=== PATIENT | male | born 1945 | race Hispanic/Latino ===

== ENCOUNTER 2019-05-27 11:35 | Inpatient (IN) | payer MEDICARE, OTHER ==
--- NOTE | 2019-05-27 12:03 | Emergency Department Report ---
<KESHIA SRINIVASAN - Last Filed: 05/27/19 14:41> ED Fall HPI - General Stated Complaint: FALL/NAUSEA/VOMITING/WEAKNESS Time Seen by Provider: 05/27/19 11:58 - History of Present Illness Initial Comments: Patient is 73 years old male with history of diabetes and hypertension. Patient presented to the ER for evaluation after a fall that happened 3 days ago. Patient stated that he lost his balance and fell on his right side complaining of lower back pain right ankle and foot pain. Patient denied any loss of consciousness. Patient denied any head injury, neck injury, chest pain or abdominal pain. MD Complaint: fall -: days(s) (3) Fall From: standing Fall Witnessed: yes, by family Place Fall Occurred: home Loss of Consciousness: none Prolonged Down Time?: no Symptoms Prior to Fall: none Location: back Location - Extremities: Right: Ankle, Foot Severity: moderate Severity scale (0 -10): 4 Quality: sharp Context: tripped/slipped Associated Symptoms: denies - Related Data Previous Rx's Medication Instructions Recorded Last Taken Type Meclizine [Antivert] 25 mg PO TID PRN #20 tablet 10/17/15 Unknown Rx HYDROcodone/APAP 5-325 [[place] 1 each PO Q6HR PRN #14 tablet 05/27/19 Unknown Rx 5/325] Ondansetron [Zofran Odt] 4 mg PO Q8HR PRN #14 tab.rapdis 05/27/19 Unknown Rx levoFLOXacin [Levaquin TAB] 500 mg PO QDAY #7 tablet 05/27/19 Unknown Rx Allergies Allergy/AdvReac Type Severity Reaction Status Date / Time No Known Allergies Allergy Verified 10/17/15 02:55 ED Review of Systems Comment: All other systems reviewed and negative Constitutional: denies: chills, fever Respiratory: denies: cough, shortness of breath, SOB with exertion Cardiovascular: denies: chest pain Gastrointestinal: denies: abdominal pain, nausea, vomiting Musculoskeletal: back pain, myalgia Neurological: denies: headache, weakness, numbness, paresthesias, confusion, abnormal gait ED Past Medical Hx - Past Medical History Hx Diabetes: Yes - Social History Smoking Status: Never Smoker Substance Use Type: None - Medications Home Medications: Home Medications Medication Instructions Recorded Confirmed Last Taken Type Meclizine [Antivert] 25 mg PO TID PRN #20 tablet 10/17/15 Unknown Rx HYDROcodone/APAP 5-325 [[place] 1 each PO Q6HR PRN #14 tablet 05/27/19 Unknown Rx 5/325] Ondansetron [Zofran Odt] 4 mg PO Q8HR PRN #14 tab.rapdis 05/27/19 Unknown Rx levoFLOXacin [Levaquin TAB] 500 mg PO QDAY #7 tablet 05/27/19 Unknown Rx ED Physical Exam - General General appearance: alert, in no apparent distress - Head Head exam: Present: atraumatic, normocephalic, normal inspection - Eye Eye exam: Present: normal appearance - ENT ENT exam: Present: normal exam, normal orophraynx, mucous membranes moist - Neck Neck exam: Present: normal inspection, full ROM. Absent: tenderness, meningismus, lymphadenopathy, thyromegaly - Respiratory Respiratory exam: Present: normal lung sounds bilaterally - Cardiovascular Cardiovascular Exam: Present: regular rate, normal rhythm, normal heart sounds - GI/Abdominal GI/Abdominal exam: Present: soft, normal bowel sounds. Absent: distended, tenderness, guarding, rebound, rigid, organomegaly, mass, bruit, pulsatile mass, hernia - Extremities Exam Extremities exam: Present: normal inspection, full ROM, normal capillary refill. Absent: pedal edema, calf tenderness - Back Exam Back exam: Present: normal inspection, full ROM. Absent: CVA tenderness (R), CVA tenderness (L) - Neurological Exam Neurological exam: Present: alert, oriented X3, CN II-XII intact, normal gait, reflexes normal. Absent: motor sensory deficit - Psychiatric Psychiatric exam: Present: normal mood - Skin Skin exam: Present: warm, intact, normal color - Orthopedic Splinting/Casting Injury #1 Side: right Lower Extremity Injury Location: ankle Lower Extremity Immobilizer: posterior splint ED Medical Decision Making - Radiology Data Radiology results: report reviewed - Medical Decision Making Patient is 73 years old male with history of diabetes and hypertension. Patient presented to the ER for evaluation after a fall that happened 3 days ago. Patient stated that he lost his balance and fell on his right side complaining o f lower back pain right ankle and foot pain. Patient denied any loss of consciousness. Patient denied any head injury, neck injury, chest pain or abdominal pain. X-ray showed a right lower fibula fracture. X-ray of the lumbar spine is negative for acute finding. Posterior leg splint applied with no complication. Patient given [place] for pain and advised to follow-up with Dr. Benedict in the nex t 2 to 3 days and to return to the ER if he develop any new symptoms. ED Disposition Clinical Impression: Closed right ankle fracture, STEMI (ST elevation myocardial infarction) Disposition: OP ADMIT IP TO THIS HOSP Is pt being admited?: No Condition: Stable Instructions: Ankle Fracture (ED) Prescriptions: levoFLOXacin [Levaquin TAB] 500 mg PO QDAY #7 tablet HYDROcodone/APAP 5-325 [[place] 5/325] 1 each PO Q6HR PRN #14 tablet PRN Reason: Pain Ondansetron [Zofran Odt] 4 mg PO Q8HR PRN #14 tab.rapdis PRN Reason: Nausea And Vomiting Referrals: PRIMARY CARE, [Primary Care Provider] - 3-5 Days ELAN BENEDICT MD [Staff Physician] - 3-5 Days <DUNG VALDIVIA - Last Filed: 05/27/19 18:32> ED Review of Systems ROS: Stated complaint: FALL/NAUSEA/VOMITING/WEAKNESS Other details as noted in HPI ED Course Vital Signs 05/27/19 05/27/19 05/27/19 11:54 12:01 12:02 Temperature 98.2 F Pulse Rate 92 H Respiratory 12 Rate Blood Pressure 127/58 Blood Pressure 127/58 [Left] O2 Sat by Pulse 97 98 96 Oximetry 05/27/19 05/27/19 05/27/19 12:57 13:01 13:15 Temperature Pulse Rate 86 90 90 Respiratory 22 15 Rate Blood Pressure 127/58 146/84 146/84 Blood Pressure [Left] O2 Sat by Pulse 99 98 Oximetry 05/27/19 05/27/19 05/27/19 13:31 13:45 14:00 Temperature Pulse Rate 84 84 85 Respiratory 17 26 H 20 Rate Blood Pressure 146/84 127/58 165/75 Blood Pressure [Left] O2 Sat by Pulse 98 96 97 Oximetry 05/27/19 05/27/19 05/27/19 14:15 14:31 14:45 Temperature Pulse Rate 86 89 89 Respiratory 20 17 14 Rate Blood Pressure 165/75 165/75 165/75 Blood Pressure [Left] O2 Sat by Pulse 97 98 99 Oximetry 05/27/19 05/27/19 05/27/19 15:00 15:15 15:26 Temperature Pulse Rate 89 92 H Respiratory 21 27 H 16 Rate Blood Pressure 180/107 180/107 Blood Pressure [Left] O2 Sat by Pulse 99 98 Oximetry 05/27/19 05/27/19 05/27/19 15:31 15:45 15:56 Temperature Pulse Rate 88 91 H Respiratory 18 18 14 Rate Blood Pressure 180/107 180/107 Blood Pressure [Left] O2 Sat by Pulse 95 94 Oximetry 05/27/19 05/27/19 05/27/19 16:01 16:15 16:31 Temperature Pulse Rate 90 90 91 H Respiratory 17 20 18 Rate Blood Pressure 180/107 180/107 180/107 Blood Pressure [Left] O2 Sat by Pulse 99 95 95 Oximetry 05/27/19 16:45 Temperature Pulse Rate 87 Respiratory 13 Rate Blood Pressure 180/107 Blood Pressure [Left] O2 Sat by Pulse 97 Oximetry - Reevaluation(s) Reevaluation #1: 05/27/19 18:31 Patient signed out to me pending results CT scan abdomen pelvis, apparently while in the emergency room, patient complained of weakness and nausea. I ordered an EKG, and it was handed to me at 6:15 PM. It is suggestive of inferior wall STEMI. I went back to personally evaluate the patient emergently. The patient complained of weakness and nausea since Friday; today is . To me, the patient makes no complaint of chest pain or shortness of breath. The EKG is transmitted to our biochemical engineer, , who agrees that the EKG meet STEMI criteria. We agreed to administer aspirin and heparin. Code STEMI was called overhead. I have also reached out to our radiology group, and have requested emergency interpretation of CT scan abdomen pelvis. ED Medical Decision Making - Lab Data Result diagrams: 05/27/19 15:55 05/27/19 15:55 Critical Care Time: Yes Critical care time in (mins) excluding proc time.: 60 Critical care attestation.: If time is entered above; I have spent that time in minutes in the direct care of this critically ill patient, excluding procedure time. ED Disposition Is pt being admited?: Yes Does the pt Need Aspirin: Yes
--- NOTE | 2019-05-27 14:21 | XRay Report ---
Injury, pain. INDICATION: Right foot injury. COMPARISON: None. FINDINGS: Frontal, lateral, and oblique views of the foot labeled right were obtained. There are mini tip displaced fractures of the distal right fibula as well as the distal most aspect of the medial malleolus. IMPRESSION: Minimally displaced fractures of the distal right fibula and distal most aspect of the right medial m alleolus. Signer Name: Barrett Grey MD Signed: 05/27/2019 2:17 PM Workstation Name: [id number]
--- NOTE | 2019-05-27 14:24 | XRay Report ---
Lumbar spine. INDICATION: BACK INJURY. COMPARISON: None. FINDINGS: Frontal and lateral radiographs of lumbar spine were obtained with coned down lateral view of the lumbosacral region. There are 5 nonrib-bearing lumbar vertebral bodies. No evidence of acute v ertebral body fracture. No vertebral body subluxation. There is extensive moderate to severe degenera tive change throughout the lumbar spine which is worse within the upper spine, particularly at L1/L2, and in the lower spine, particularly at L4/L5. IMPRESSION: Lumbar spine without evidence of acute osseous injury. Signer Name: Barrett Grey MD Signed: 05/27/2019 2:19 PM Workstation Name: [id number]
--- NOTE | 2019-05-27 14:26 | XRay Report ---
XR ankle 3+V RT INDICATION / CLINICAL INFORMATION: Right ankle injury. COMPARISON: None available. FINDINGS: BONES/JOINT(S): There is a nondisplaced oblique fracture of the lateral malleolus and a small nondisp laced fracture of the medial aspect of the medial malleolus. Ankle mortise alignment appears maintain ed. SOFT TISSUES: No significant abnormality. ADDITIONAL FINDINGS: None. Signer Name: Jeb Stearns MD Signed: 05/27/2019 2:21 PM Workstation Name: [id number]
[2019-05-27] MEDS ORDERED: ONDANSETRON 4 MG/2 ML INJ IM ONE (14:46)
[2019-05-27] MEDS ORDERED: MORPHINE 4 MG/1 ML INJ IM ONE (14:46)
[2019-05-27 15:24] LABS: Bacteria,Urine 4+ /HPF (Negative); Bilirubin,Urine NEG (Negative); Blood,Urine LG (Negative); Color,Urine Yellow (Yellow); Hyaline Casts,Urine 3 /LPF; Mucus,Urine 2+ /HPF; Sperm,Urine FEW /HPF (NP)
[2019-05-27 16:18] LABS: Basophils % (Auto) 0.2 % (0.0-1.8); Hemoglobin 14.7 gm/dl (11.8-15.2); Lymphocytes % (Auto) 5.6 % (13.4-35.0); Mean Corpuscular HGB Conc 33 % (32-34); Mean Corpuscular Volume 95 fl (84-94); Monocytes # (Auto) 1.2 K/mm3 (0.0-0.8); Monocytes % (Auto) 6.8 % (0.0-7.3); Platelet Count 153 K/mm3 (140-440); Red Blood Count 4.62 M/mm3 (3.65-5.03)
[2019-05-27 16:26] LABS: Albumin 3.4 g/dL (3.9-5); Calcium 9.2 mg/dL (8.4-10.2)
[2019-05-27] MEDS ORDERED: cefTRIAXone/NS 1 GM/50 ML 1 GM/50 ML BAG IV ONE (16:55)
[2019-05-27] MEDS ORDERED: SODIUM CHLORIDE 0.9% 1000 ML 1,000 ML IV ONE (16:55)
[2019-05-27] MEDS ORDERED: ALBUTEROL 2.5 MG/3 ML NEBU IH PRN (18:06)
[2019-05-27] MEDS ORDERED: ONDANSETRON 4 MG/2 ML INJ IV PRN (18:06)
[2019-05-27] MEDS ORDERED: ACETAMINOPHEN 325 MG TAB PO PRN (18:06)
--- NOTE | 2019-05-27 18:06 | History and Physical Report ---
History of Present Illness Chief complaint: My foot has been hurting since I fell down History of present illness: 73 YO Male with DM, Vertigo presents to ED for evaluation. Patient states that he experienced dizziness followed by a fall that occurred 3 days ago. Patient reports falling and landing on his right side and right leg. Patient reports that immediately after the fall he felt pain in his right ankle and foot. Patient states that pain has persisted since his fall and presents to ED for evaluation. Patient states that pain is 4/10, localized to the right foot, worsened with weightbearing, relieved with rest. EMS notified and upon arrival the patient was found to be in distress and subsequently transported to [facility] for further evaluation and care. Patient seen and evaluated in the emergency depar tment. Lab and imaging studies reviewed. Patient found to have right fibular fracture on x-ray of the right lower extremity. Orthopedic surgery consulted and recommend outpatient follow-up. Patient underwent routine EKG which showed evidence of ST elevation [place]. A code STEMI was called. Cardiology team consulted in the emergency department and patient to be taken urgently to the cardiac Garage Supervisor for intervention. Patient also found to have urinary tract infection, accelerated hypertension, as well as systemic inflammatory response syndrome suspected secondary to urinary tract infection. Patient admitted to IM. Patient denies fever, chills, chest pain, palpitations, shortness of dulce ath, hemoptysis, unilateral leg swelling, individual/family history of DVT/PE/bleeding/blood clotting disorders, unintentional weight loss, night sweats, or known ill contacts. Advanced care planning conducted in ED. No prior admission for review. All medication listed at time of admission has been reconciled. Past History Past Medical History: diabetes Past Surgical History: No surgical history, Other Social history: . denies: smoking, alcohol abuse, prescription drug abuse Family history: diabetes, hypertension Medications and Allergies Allergies Allergy/AdvReac Type Severity Reaction Status Date / Time No Known Allergies Allergy Verified 10/17/15 02:55 Home Medications Medication Instructions Recorded Confirmed Last Taken Type Meclizine [Antivert] 25 mg PO TID PRN #20 tablet 10/17/15 Unknown Rx HYDROcodone/APAP 5-325 [[place] 1 each PO Q6HR PRN #14 tablet 05/27/19 Unknown Rx 5/325] Ondansetron [Zofran Odt] 4 mg PO Q8HR PRN #14 tab.rapdis 05/27/19 Unknown Rx levoFLOXacin [Levaquin TAB] 500 mg PO QDAY #7 tablet 05/27/19 Unknown Rx Review of Systems Constitutional: no weight loss, no weight gain, no fever, no chills Ears, nose, mouth and throat: no ear pain, no ear discharge, no tinnitis, no decreased hearing, no nose pain, no nasal discharge Cardiovascular: no chest pain, no orthopnea, no palpitations, no edema, no syncope Respiratory: no cough, no cough with sputum, no hemoptysis, no shortness of breath, no dyspnea on exertion Gastrointestinal: no nausea, no vomiting, no diarrhea, no constipation Genitourinary Male: no hematuria, no flank pain, no discharge, no urinary freq uency, no urinary hesitancy Rectal: no pain, no incontinence, no bleeding Musculoskeletal: no neck stiffness, no neck pain, no arm numbness/tingling, no low back pain, no shooting leg pain Integumentary: no rash, no pruritis, no wounds Neurological: no head injury, no transient paralysis, no paralysis, no weakness, no numbness, no tingling, no syncope Psychiatric: no anxiety, no change in sleep habits, no sleep disturbances, no hypersomnia, no change in libido Endocrine: no cold intolerance, no heat intolerance, no polyphagia, no excessive thirst, no polydipsia, no polyuria, no nocturia Hematologic/Lymphatic: no easy bruising, no easy bleeding, no lymphadenopathy, no lymphedema Allergic/Immunologic: no allergic rhinitis, no anaphylaxis, no angioedema Exam - Constitutional Vitals: Temp Pulse Resp BP Pulse Ox 98.2 F 87 13 180/107 97 05/27/19 12:02 05/27/19 16:45 05/27/19 16:45 05/27/19 16:45 05/27/19 16:45 General appearance: Present: mild distress - EENT Eyes: Present: PERRL ENT: hearing intact, clear oral mucosa - Neck Neck: Present: supple, normal ROM - Respiratory Respiratory effort: normal Respiratory: bilateral: CTA - Cardiovascular Heart Sounds: Present: S1 & S2. Absent: rub, click - Extremities Extremities: pulses symmetrical, No edema Peripheral Pulses: within normal limits - Abdominal General gastrointestinal: Present: soft, non-tender, non-distended, normal bowel sounds Male genitourinary: Present: normal - Integumentary Integumentary: Present: clear, warm, dry - Musculoskeletal Musculoskeletal: gait normal, strength equal bilaterally - Psychiatric Psychiatric: appropriate mood/affect, intact judgment & insight - Neurologic Neurologic: CNII-XII intact, moves all extremities Results - Labs CBC & Chem 7: 05/27/19 15:55 05/27/19 15:55 Labs: Abnormal lab results 05/27/19 05/27/19 05/27/19 Range/Units 15:10 15:55 15:55 WBC 17.9 H (4.5-11.0) K/mm3 MCV 95 H (84-94) fl Lymph % (Auto) 5.6 L (13.4-35.0) % Lymph # 1.0 L (1.2-5.4) K/mm3 [place] # 1.2 H (0.0-0.8) K/mm3 Seg Neutrophils % 87.4 H (40.0-70.0) % Seg Neutrophils # 15.7 H (1.8-7.7) K/mm3 Sodium 133 L (137-145) mmol/L Chloride 94.7 L (98-107) mmol/L BUN 27 H (9-20) mg/dL Glucose 194 H (75-100) mg/dL AST 70 H (5-40) units/L Albumin 3.4 L (3.9-5) g/dL Urine WBC (Auto) 86.0 H (0.0-6.0) /HPF Assessment and Plan - Patient Problems (1) STEMI (ST elevation myocardial infarction) Current Visit: Yes Status: Acute Qualifiers: Involved coronary artery: unspecified coronary artery Qualified Code(s): I21.3 - ST elevation (STEMI) myocardial infarction of unspecified site Plan to address problem: EKG conducted in ED which revealed evidence of ST elevation [place], cardiology team consult placed in ED, patient to cardiac Garage Supervisor for cardiac intervention, supportive care. (2) Urinary tract infection Current Visit: Yes Status: Acute Qualifiers: Encounter type: initial encounter Plan to address problem: Urinalysis, IV antibiotic therapy, IV fluid resuscitation therapy, supportive care. (3) Systemic inflammatory response syndrome Current Visit: Yes Status: Acute Plan to address problem: IV antibiotic therapy, CBC, CMP, chest x-ray, urinalysis, (4) Closed right ankle fracture Current Visit: Yes Status: Acute Qualifiers: Encounter type: initial encounter Qualified Code(s): S82.891A - Other fracture of right lower leg, initial encounter for closed fracture Plan to address problem: X-ray right lower extremity, orthopedic surgery consult placed in ED, outpatient orthopedic surgery follow-up. (5) Advance care planning Current Visit: Yes Status: Acute Plan to address problem: Patient is full code, disease education conducted, patient knowledges understanding and agreement with care plan, +30 minutes. (6) Right fibular fracture Current Visit: Yes Status: Acute Plan to address problem: Orthopedic surgery team consulted in ED. Outpatient Ortho follow-up. (7) Hyponatremia Current Visit: Yes Status: Acute Plan to address problem: IV fluid resuscitation therapy as tolerated, BMP, repeat BMP in a.m. (8) DVT prophylaxis Current Visit: Yes Status: Acute Plan to address problem: SCD to bilateral lower extremities while in bed, therapeutic anticoagulation initiated in ED. Further anticoagulation as per cardiology team. (9) Accelerated hypertension Current Visit: Yes Status: Acute Plan to address problem: Patient is full code, disease education conducted, patient acknowledges understanding and agreement with care plan, +30 minutes.
[2019-05-27] MEDS ORDERED: HEPARIN 10,000 UNITS/10 ML VIAL IV ONE (18:28)
[2019-05-27] MEDS ORDERED: HEPARIN/NS 5000 UNIT/500ML 1,000 ML IR ONE ×2 (19:00→19:05)
[2019-05-27] MEDS ORDERED: HEPARIN/ 0.45% NACL DRIP 25,000 UNIT/500 ML BAG IV SCH (19:00)
[2019-05-27] MEDS ORDERED: HEPARIN 10,000 UNITS/10 ML VIAL ONE ×3 (19:00→23:55)
[2019-05-27] MEDS ORDERED: NITROGLYCERIN SYRINGE 0 ML ONE (19:01)
[2019-05-27] MEDS ORDERED: VERAPAMIL 5 MG/2 ML INJ ONE (19:01)
[2019-05-27] MEDS ORDERED: LIDOCAINE (2%) 20 MG/1 ML VIAL 20 ML MDV INFILTRATI ONE (19:01)
[2019-05-27] MEDS ORDERED: fentaNYL 100 MCG/2 ML INJ ONE (19:06)
[2019-05-27] MEDS ORDERED: MIDAZOLAM 2 MG/2 ML INJ ONE (19:06)
[2019-05-27] MEDS ORDERED: NITROGLYCERIN DRIP 50 MG/250 ML BOTTLE ONE (19:15)
--- NOTE | 2019-05-27 19:18 | Cat Scan Report ---
CT ABDOMEN AND PELVIS WITH CONTRAST HISTORY: Abdominal pain COMPARISON: None TECHNIQUE: Routine abdominal and pelvic CT exam performed following intravenous contrast administrat ion. The patient received 100 mL of IV Omnipaque 300. All CT scans at this location are performed usi ng CT dose reduction for ALARA by means of automated exposure control. FINDINGS: CT ABDOMEN: Lung Bases: There is mild peripheral subpleural reticulation in both lung bases suggesting chronic in terstitial lung disease. Liver: No significant abnormality. Biliary: No significant abnormality. Spleen: No significant abnormality. Unenlarged. Pancreas: No significant abnormality. Adrenals: No significant abnormality. Kidneys: No significant abnormality. Lymphatics: No lymphadenopathy. Vasculature: Atherosclerotic but nonaneurysmal abdominal aorta. Bowel/Peritoneum: No significant abnormality. No free air. No free fluid. CT PELVIC: : No significant abnormality. Lymphatics: No lymphadenopathy. Osseous Structures: No aggressive appearing osseous lesions. Moderate diffuse spondylosis in the lowe r thoracic and lumbar spine. Additional Findings: None IMPRESSION: 1. No acute findings. No findings to spine abdominal pain. 2. Findings suggesting mild chronic interstitial lung disease in the visualized lung bases. Signer Name: Jeb Stearns MD Signed: 05/27/2019 7:14 PM Workstation Name: [id number]
[2019-05-27 19:57] VITALS: BP 138/76
--- NOTE | 2019-05-27 20:24 | Cardiac Catherization Report ---
CLINICAL INFORMATION: The patient is a 73-year-old white gentleman with history of hypertension, diabetes mellitus who fell down yesterday when he felt dizzy, but no history of syncope and came for leg pain and nausea and vomiting. He was noted to have fractured ankle, but he was complaining of nausea and vomiting for no reason. Hence, a CT scan was ordered at the same time, an EKG was performed, which showed mild ST elevations in the inferior leads along with mild ST depressions in the precordial leads suggestive of acute injury. However, the patient is not having any chest pain at this point. His nausea got better with medication. He denies any shortness of breath. Because of his EKG changes, he was brought to the cardiac catheterization on an emergency basis. No family is available. The patient was given morphine in the Emergency Room. Hence, patient is not able to give good history. However, he is talking and able to communicate enough to say he is not having any chest pain or shortness of breath. His blood pressure is elevated with 180 systolic, started on IV nitroglycerin. The patient was brought to the catheterization as a part of the STEMI protocol. DESCRIPTION OF PROCEDURE: The patient was prepared in standard fashion. The patient was given heparin in the Emergency Room. Local anesthesia was given in the right wrist area. The patient was sedated with IV Versed and fentanyl. Right radial artery puncture was made using 21-gauge arterial puncture needle. A 5-Panamanian slender sheath was introduced. Subsequently, a 6-Panamanian JR 4 guiding catheter was advanced into the subclavian area; however, is very tortuous requiring using a Glidewire. However, with manipulation is able to advance the 6-Panamanian JR4 guiding catheter into the aorta. Difficult to manipulate the catheter and there is a twisting of the catheter. This catheter was exchanged for a diagnostic 6-Panamanian multipurpose catheter. Angiograms of the left ventricle were obtained in RATLIFF and SWEDISH projection using hand injection and subsequently using the same catheter, angiograms of the left coronary artery were obtained in multiple views and also angiograms of the right coronary artery were obtained. This showed severe triple vessel disease including distal left main disease and occluded almost a subtotal occlusion of the RCA with excellent collaterals to the RCA. Considering the above anatomy and the patient is not having any symptoms and hemodynamically stable, it was felt that the patient would benefit from revascularization surgically. Hence, arrangements being made to transfer the patient to [facility] for revascularization surgically. Discussed with Dr. Conner. Following findings were noted. Left aortic pressure is 142/87, left ventricular pressure 153/26. No gradient across the aortic valve. Estimated ejection fraction 50-55%. However, only limited amount of dye was injected and mitral regurgitation could not be evaluated. There is severe calcification in the left main area. Left main shows a severe distal stenosis before bifurcation showing 80% or more tubular disease. LAD is severely diffusely diseased maybe LAD is bifurcating into intramuscular part which is a small to medium sized vessel and LAD, which is curving around the apex shows severe diffuse disease with tight 90% stenosis in the high mid part with diffuse disease distally. Circumflex artery showed 70% ostial disease in addition to occlusion of the distal marginal branch, which is filling late. Proximal branch is patent with moderate diffuse disease. Also proximal marginal branch shows significant 80-90% stenosis in the mid part. RCA shows subtotal occlusion with faint filling of the distal vessel on RCA injection. The lesion is in the proximal part. However, on LCA injection, there are excellent collaterals from the circumflex artery to the distal LV branches. Distal RCA at this time is protected antegradely and retrogradely. FINAL IMPRESSION: Normal sized left ventricle with mildly elevated end diastolic pressure and hemodynamically stable with blood pressure being 142/87 on 10 mcg of IV nitroglycerin. Severe triple vessel disease, which is diffuse disease including left main disease. The patient's EKG showed injury in the inferior wall area. However, this area is protected by excellent collaterals and also some antegrade flow. The patient is not having any symptoms of chest pain. Considering the above anatomy, it was felt that the patient would benefit from surgical revascularization. Discussed with Dr. Conner who is agreeable to transfer the patient. The patient was sedated with IV Versed and sedation started at 1921 hours and ended at 1939 hours. The patient was monitored throughout the procedure with pulse oximetry, hemodynamic and EKG monitoring. The patient is hemodynamically stable and no significant arrhythmia were noted. The patient's family is not available. I explained to the patient, but he may not be able to understand clearly,he being sedated. JOB# [id number] [facility]
--- NOTE | 2019-05-27 21:37 | Consultation ---
HISTORY OF PRESENT ILLNESS: The patient is a 73-year-old white gentleman who presented to the Emergency Room because of right leg pain today and nausea and vomiting. However, history is obtained from his brother on the phone. Apparently, he felt dizzy and fell down and also he got some nausea and vomiting yesterday. However, he did not come to the Emergency Room until today, at which time he presented with leg pain and he was initially evaluated for leg pain, he was noted to have fractured right ankle. Because of his nausea and vomiting, he has a CT scan of the abdomen performed, which was unremarkable. An EKG was performed, which showed sinus rhythm at a rate of 96 beats per minute with mild ST elevations in inferior leads with mild ST depressions in the precordial leads. Because of this acute injury pattern, he was taken to the catheterization laboratory on an emergency basis. Please refer to the catheterization report for further details. History is obtained from patient's brother Shree on the phone. However, the patient himself could not give much history. The patient has a history of hypertension, diabetes mellitus, being followed by Dr. Madhav Null, but no history of lung problems. No history of strokes or seizures. Previous history, he has chronic back pain. REVIEW OF SYSTEMS: No chest pain or shortness of breath. As mentioned above, he is a hypertensive, diabetic. No history of asthma. No history of any peptic ulcer disease. No history of pulmonary emboli or DVT. No further details available. Considering the patient's mental status rest history is not available. PHYSICAL EXAMINATION: GENERAL: The patient at this time appears to be comfortable, in no acute distress. HEENT: Conjunctivae pink. Sclerae anicteric. NECK: Supple. HEART: Regular, no significant murmurs. LUNGS: Clear. ABDOMEN: Benign. EXTREMITIES: Without edema. FINAL IMPRESSION: Acute inferior injury of unknown duration, probably more than 24 hours, considering his symptoms started yesterday with nausea, vomiting and dizziness and fall which resulted in a compacted fracture of the right ankle area. At this time, considering his EKG changes an emergency cardiac catheterization was performed, which showed fairly good left ventricular function with end diastolic pressure of 26 mmHg, and severe triple vessel disease, which is diffuse including distal left main disease and significant mid left anterior descending and OM1 and OM2 disease. OM2 is occluded filling retrograde. OM1 has significant disease in the mid part 80% or so and right coronary artery showed subtotal occlusion in the proximal part with faint antegrade filling and also excellent collaterals from circumflex artery to the distal right coronary artery. At this time, considering above angiographic picture and his symptoms being subacute it was felt that the patient will be continued on medical therapy and surgical therapy was felt to be appropriate. Hence, the patient is being transferred to [facility] for further management. Discussed with Dr. Conner who agreed for transfer. The patient is hemodynamically stable without any chest pain and stable blood pressure 140/80. Rhythm being sinus. Not having chest pain. Findings were discussed with the patient's brother who is agreeable with the plan. Overall, prognosis is guarded. JOB# [id number] OSMEL/KRISTIN ROQUE
[2019-05-27] MEDS ORDERED: HEPARIN/ 0.45% NACL - 25,000 UNITS/500 ML DRIP ONE (23:55)
[2019-05-27] MEDS ORDERED: SODIUM CHLORIDE 0.9% 1000 ML IV SOLN ONE (23:55)
[2019-05-28] MEDS ORDERED: cefTRIAXone/NS 1 GM/50 ML 1 GM/50 ML BAG IV SCH (10:00)
--- NOTE | 2019-05-31 11:00 | Event Note ---
Date: 05/28/19 Patient was transferred to another hospital, I never saw this patient as the transfer happened on same day of admission
== END 2019-05-27 21:03 | disposition short-term general hospital (02) | DRG 280 ==
LOC: ED 11:35 → IMCU 17:04 → CC1 20:34 → IMCU 20:46
PROVIDERS: ADMIT Internal Medicine; ATTEND Internal Medicine
PROC: 4A023N7 Measurement of Cardiac Sampling and Pressure, Left Heart, Percutaneous Approach (ICD-10-PCS; principal; 2019-05-27)
PROC: B2111ZZ Fluoroscopy of Multiple Coronary Arteries using Low Osmolar Contrast (ICD-10-PCS; 2019-05-27)
PROC: B2151ZZ Fluoroscopy of Left Heart using Low Osmolar Contrast (ICD-10-PCS; 2019-05-27)
DX: I21.4 Non-ST elevation (NSTEMI) myocardial infarction (principal); R65.11 Systemic inflammatory response syndrome (SIRS) of non-infectious origin with acute organ dysfunction; N39.0 Urinary tract infection, site not specified; E87.1 Hypo-osmolality and hyponatremia; S82.401A Unspecified fracture of shaft of right fibula, initial encounter for closed fracture; S82.891A Other fracture of right lower leg, initial encounter for closed fracture; E11.9 Type 2 diabetes mellitus without complications; I10 Essential (primary) hypertension; Z79.01 Long term (current) use of anticoagulants; W18.39XA Other fall on same level, initial encounter; Y93.89 Activity, other specified; Y92.89 Other specified places as the place of occurrence of the external cause; Z83.3 Family history of diabetes mellitus; Z82.49 Family history of ischemic heart disease and other diseases of the circulatory system
CPT/HCPCS: 36415; 72100; 74177; 80053; 81001; 85025; 87076; 87086; 87186; 93005; 93010; 93458; G0378; C1887; C1894; J0696; J1644; J2250; J2270; J2405; J3010; J7030; Q9967